=== PATIENT | female | born 1960 | race Caucasian/White ===

== ENCOUNTER 2022-08-30 07:18 | Day surgery (SDC) | payer OTHER, SELFPAY ==
--- NOTE | 2022-08-30 07:30 | SUR.PREOP ---
HOME COVID NEGATIVE.
[2022-08-30 07:36] VITALS: BMI 35.4
[2022-08-30 07:45] VITALS: BP 132/74; PULSE 63; RESP 16; TEMP 36.3; O2SAT 95
[2022-08-30] MEDS: SODIUM CHLORIDE 0.9 % (FLUSH) 10 ML SYRINGE IVF (07:50)
[2022-08-30] MEDS: LACTATED RINGERS 1000 ML 1,000 ML 100 ML IV (07:50)
--- NOTE | 2022-08-30 08:22 | W.ANESCHARGE ---
Anesthesia Charges Start Date/Time Anesthesia Start Date: 08/30/22 Anesthesia Start Time: 09:00 Stop Date/Time Anesthesia Stop Date: 08/30/22 Anesthesia Stop Time: 09:40
--- NOTE | 2022-08-30 09:03 | W.PM.GYNPROC ---
Procedure Note Date Seen: 08/30/22 Procedure Details: PREOPERATIVE DIAGNOSIS: 1. Postmenopausal bleeding. 2. Thickened endometrial stripe by ultrasound, and endometrial polyp fragments on endometrial biopsy. POSTOPERATIVE DIAGNOSIS: 1. Postmenopausal bleeding. 2. Thickened endometrial stripe by ultrasound, and endometrial polyp fragments on endometrial biopsy. NAME OF PROCEDURE: 1. Hysteroscopy. 2. D and C 3. Polypectomy. SURGEON: Alex. ANESTHESIA: Monitored anesthesia care and paracervical block. COMPLICATIONS: None.. ESTIMATED BLOOD LOSS: <10 mL. FINDINGS: Endometrial polyp arising from the anterior endometrium. PATHOLOGY SPECIMENS: 1. Endometrial polyp and endometrial curettings, sent as a single specimen. PROCEDURE: After obtaining informed consent, the patient was taken to the operating room where she received monitored anesthesia care. She was prepared and draped in the normal sterile fashion, in the dorsal lithotomy position. An open-sided bivalve speculum was introduced into the vagina and the cervix visualized. The anterior lip of the cervix was grasped with a single-tooth tenaculum for traction. A paracervical block was then administered using a total of 20 mL of a 50/50 mixture of 0.25% Marcaine and 1% lidocaine plain. The uterus was gently sounded. Sound length was 8 cm. The cervix was gently dilated to a #7 Hegar dilator. A hysteroscope was then advanced under direct visualization through the cervix into the uterine cavity. Sterile normal saline was used as distending medium. The uterine cavity was carefully inspected with the findings noted above. Pictures were taken for documentation purposes. The TruClear morcellator was inserted through the operating channel in the hysteroscope. The morcellator was used to remove the polyp in its entirety. The hysteroscope was then removed. The endometrial lining was then sharply curetted. The hysteroscope was removed. The tenaculum was removed. There was little bleeding from the tenaculum site, which was controlled with direct pressure sponge stick. All instruments were then removed. The patient tolerated the procedure well. Sponge, lap, needle, and instrument counts reported as correct x2. The patient was taken to the recovery room awake in a stable condition.
[2022-08-30] MEDS: LIDOCAINE 1% MDV 10 ML INJECTION (09:15)
[2022-08-30] MEDS: BUPIVACAINE 0.25% 30 ML 10 ML INJECTION (09:15)
[2022-08-30 09:37] VITALS: BP 122/72; PULSE 53; RESP 16; TEMP 36.4; O2SAT 92
--- NOTE | 2022-08-30 09:41 | W.ANESCHARGE ---
Anesthesia Charges Start Date/Time Anesthesia Start Date: 08/30/22 Anesthesia Start Time: 09:00 Stop Date/Time Anesthesia Stop Date: 08/30/22 Anesthesia Stop Time: 09:40
[2022-08-30 09:45] VITALS: BP 137/73; PULSE 47; RESP 16; O2SAT 97
[2022-08-30 10:00] VITALS: BP 134/87; PULSE 49; RESP 16; O2SAT 98
[2022-08-30 10:15] VITALS: BP 132/79; PULSE 65; RESP 16; O2SAT 95
[2022-08-30 10:30] VITALS: BP 146/71; PULSE 65; RESP 16; O2SAT 97
== END 2022-08-30 11:00 | disposition home or self-care (01) ==
PROVIDERS: PCP Family Medicine; Visit Provider Obstetrics & Gynecology
PROC: 0UDB8ZZ Extraction of Endometrium, Via Natural or Artificial Opening Endoscopic (ICD-10-PCS; CPT 58558; principal; 2022-08-30 08:45)
DX: N95.0 Postmenopausal bleeding (principal); N84.0 Polyp of corpus uteri; R93.89 Abnormal findings on diagnostic imaging of other specified body structures
CPT/HCPCS: 58558; 00952; 88305; J1885; J2250; J2405; J2704; J3010; J3490; J7120

== ENCOUNTER 2024-09-16 07:14 | Day surgery (SDC) | payer OTHER, SELFPAY ==
[2024-09-16] VITALS (16 sets, daily range): BP systolic 126–175; BP diastolic 73–92; PULSE 52–66; RESP 12–20; TEMP 36.4–37.2; O2SAT 92–98; BMI 35.3
[2024-09-16] MEDS: LACTATED RINGERS 1000 ML 1,000 ML 100 ML IV (08:08)
[2024-09-16] MEDS: SODIUM CHLORIDE 0.9 % (FLUSH) 10 ML SYRINGE IVF (08:08)
--- NOTE | 2024-09-16 09:18 | P.ANES_ITS ---
Anesthesia Charges Start Date/Time Anesthesia Start Date: 09/16/24 Anesthesia Start Time: 09:34 Stop Date/Time Anesthesia Stop Date: 09/16/24 Anesthesia Stop Time: 10:31 Coding CPT Codes CPT Codes: ANESTH SURG UPPER ABDOMEN - 94157 ([id number]) P2 - PATIENT W/MILD SYST DISEASE, QK - COMPOSITION MIXER 2-4 CNCRNT ANES PROC, QX - JUICE SCALEMAN SVC W/ MD MED DIRECTION
--- NOTE | 2024-09-16 09:18 | W.ANESCHARGE ---
Anesthesia Charges Start Date/Time Anesthesia Start Date: 09/16/24 Anesthesia Start Time: 09:34 Stop Date/Time Anesthesia Stop Date: 09/16/24 Anesthesia Stop Time: 10:31 Coding CPT Codes CPT Codes: ANESTH SURG UPPER ABDOMEN - 65614 ([id number]) P2 - PATIENT W/MILD SYST DISEASE, QK - CRIB CLERK 2-4 CNCRNT ANES PROC, QX - TRIM CARPENTER SVC W/ MD MED DIRECTION
--- NOTE | 2024-09-16 09:37 | P.GSOP_ITS ---
Operative Note Date of procedure: 09/16/24 Pre-op diagnosis: 1. Biliary colic. 2. Possible chronic cholecystitis. Post-op diagnosis: Same Type of Procedure: 1. Laparoscopic cholecystectomy. Indications: 64-year-old female presented to clinic for evaluation of episodes of right upper quadrant pain that has been going on for 2 years. She felt that pain happened after eating greasy food and sometimes without eating. The pain lasted for few hours and then spontaneously resolved. In the last couple weeks prior to her presentation the painful episodes occurred almost daily. She denied acid reflux. Patient's workup showed gallbladder ultrasound with cholelithiasis and common bile duct of 6 mm. The gallbladder wall was measuring at 2 mm thick. There was also a ring down artifact concerning adenomyomatosis. On clinical exam patient had tenderness to palpation in the right upper quadrant with negative Putnam sign. Given patient's clinical history, laparoscopic cholecystectomy was offered. Patient decided to proceed with surgery. The procedure was discussed in detail. The risks associated procedure including infection, bleeding, injury to intra-abdominal organs, continued right upper quadrant pain, and injury to the common bile duct were all discussed with the patient, and she agreed to proceed. Procedure Description: After discussing the risks and benefits of the procedure, the patient signed informed consent.? The operative site was marked and the patient was brought to the operating room and placed on the operating table in supine position.? Care was taken to pad the patient's pressure points.?? The patient was then intubated by anesthesia.?? The operative site was then prepped and draped in the usual sterile fashion.? A time-out was then performed. A 5-mm laparoscopy port was placed in the left upper quadrant guided by a 5-mm laparoscope placed into a translucent trochar.~ Passage through the layers of the abdominal wall was visualized with the laparoscope.~ A pneumoperitoneum was established. A 0-degree 5-mm laparoscope was advanced into the abdomen. The abdomen was briefly surveyed, and no adhesions were noted. A 10-mm port were placed infraumbilically and two more 5 mm ports were placed on the right under direct visualization by laparoscope. The camera was then changed to 10 mm 30- degree scope and placed into the abdomen through the 10 mm port. The left upper quadrant port entrance was examined and no injury to intra-abdominal organs was identified. The gallbladder was identified, the fundus grasped and retracted cephalad. The infundibulum was grasped and retracted laterally, exposing the peritoneum overlying the triangle of Calot. This was then divided and exposed in a blunt fashion and with hook cautery. Common bile duct was not identified but care was taken not to injure it. The cystic duct was clearly identified and bluntly d issected circumferentially. Cystic artery was identified and tissues around it were dissected off. The cystic artery and the cystic duct were clearly going into the gallbladder. The cystic duct was then doubly ligated with surgical clips on the patient's side and singly clipped on the gallbladder side and divided. The cystic artery was then similarly ligated with clips and divided as well. The gallbladder was dissected from the liver bed in retrograde fashion using hookcautery. The gallbladder was placed into an Endo-Catch bag and removed through the infraumbilical incision. Surgical site was examined for bleeding. No bleeding was seen in the surgical field. The fascia of the infraumbilical incision was then closed with 0-0 vicryl using Jean Carlos Alex needle under direct visualization. Pneumoperitoneum was completely reduced after viewing removal of the trocars under direct vision. The skin was then closed with 4-0 monocryl and steristrips were applied. Instrument, sponge, and needle counts were correct at closure and at the conclusion of the case. The patient was transferred to PACU in stable condition. Findings: No acute inflammation. Anesthesia: GETA Surgeon: Yohana Hall MD Estimated blood loss (mL): 5 Specimen: Gallbladder Condition: stable Disposition: PACU
[2024-09-16] MEDS: CEFAZOLIN 2 GM INJ IVP (09:40)
[2024-09-16] MEDS: BUPIVACAINE 0.25% 30 ML INJECTION (10:00)
[2024-09-16] MEDS: LIDOCAINE 1%-EPI 1:100,000 20 ML INFILTRATI (10:00)
[2024-09-16] MEDS: MIDAZOLAM HCL 1 MG/ML inj IVP (10:41)
--- NOTE | 2024-09-16 10:44 | P.ANES_ITS ---
Anesthesia Charges Start Date/Time Anesthesia Start Date: 09/16/24 Anesthesia Start Time: 09:34 Stop Date/Time Anesthesia Stop Date: 09/16/24 Anesthesia Stop Time: 10:31 Coding CPT Codes CPT Codes: ANESTH SURG UPPER ABDOMEN - 96244 ([id number]) P2 - PATIENT W/MILD SYST DISEASE, QK - STRAP CUTTING MACHINE OPERATOR 2-4 CNCRNT ANES PROC, QX - JUNIOR WEB DESIGNER SVC W/ MD MED DIRECTION
--- NOTE | 2024-09-16 10:44 | W.ANESCHARGE ---
Anesthesia Charges Start Date/Time Anesthesia Start Date: 09/16/24 Anesthesia Start Time: 09:34 Stop Date/Time Anesthesia Stop Date: 09/16/24 Anesthesia Stop Time: 10:31 Coding CPT Codes CPT Codes: ANESTH SURG UPPER ABDOMEN - 76796 ([id number]) P2 - PATIENT W/MILD SYST DISEASE, QK - CARD BRUSHER 2-4 CNCRNT ANES PROC, QX - JOB SPECIFICATION WRITER SVC W/ MD MED DIRECTION
== END 2024-09-16 13:22 | disposition home or self-care (01) ==
PROVIDERS: PCP Family Medicine; Visit Provider Surgery
PROC: 0FT44ZZ Resection of Gallbladder, Percutaneous Endoscopic Approach (ICD-10-PCS; CPT 47562; principal; 2024-09-16 08:30)
DX: K80.10 Calculus of gallbladder with chronic cholecystitis without obstruction (principal); R10.11 Right upper quadrant pain
CPT/HCPCS: 47562; 00790; 88304; J0330; J0665; J0690; J1100; J1171; J1630; J2250; J2405; J2704; J3010; J3490; J7120